=== PATIENT | male | born 1970 | race Two or more races ===

== ENCOUNTER 2023-06-23 14:22 | Outpatient (REF) | payer OTHER, SELFPAY | END 2023-06-23 14:23 | disposition home or self-care (01) | LOC: HO.HHCX 14:22 | PROVIDERS: Visit Provider Internal Medicine Geriatric Medicine | DX: Z13.89 Encounter for screening for other disorder (principal) ==

== ENCOUNTER 2024-08-01 08:48 | Outpatient (REF) | payer OTHER, SELFPAY ==
--- OUTSIDE RECORDS SUMMARY | 2024-08-01 09:17 | XMS_ITS | Encounter Summary ---
Author Organization [employer] Address [address] [facility] [address] [place] [address] Care Team Providers Care Carburetor Specialist Name Role Phone Meagan Francis VISION CARE ASSOCIATE Primary Care Provider [phone] Encounter Details Date Type Department Care Team (Late st Contact Info) Description 07/30/2024 Telephone [facility] [address] [place] [address] Meme Torres, RN Social History Tobacco Use Types Packs/Day Years Used Date Smoking Tobacco: Former Cigarettes Passive Smoke Exposure: Past Smokeless Tobacco: Never Comments:Stopped smoking 200 9 Alcohol Use Standard Drinks/Week Comments Defer 0 (1 standard drink = 0.6 oz pur e alcohol) stopped 2008 Depression Answer Date Recorded Patient Health Questionnaire-9 Score 1 07/26/2024 Patient Health Questionnaire-9 Score 1 07/26/2024 Last PHQ-9: Questionnaire Data Not on file 0 07/26/2024 Housing Stability Answer Date Recorded What is your housing situation today? I have danielle steele 07/19/[address] you li ve. Do you have problems with any of the following? None of the above 07/19/2024 Food Insecurity Answer Date Recorded Within the past 12 months, y ou worried that your food would run out before you got money to buy more: Never True 07/19/2024 Within the past 12 months,th e food you bought just didn't last and you didn't have enough money to get more: Never True 02/2025 Transportation Answer Date Recorded In the past 12 months, has l ack of transportation kept you from medical appts, meetings, work or from getting things needed for daily living? No 07/19/2024 Utilities Answer Date Recorded In the past 12 months, has t he electric, gas, oil or water company threatened to shut off services in your home? No 07/19/2024 Depression Answer Date Recorded Patient Health Questionnaire-2 Score 0 07/26/2024 Internet Access Answer Date Recorded Internet Access Q1 Yes 07/19/2024 Internet Access Q2 Not on file 07/19/2024 Sex and Gender Information Value Date Recorded Sex Assigned at Male 03/14/2023 1:36 PM EST Legal Sex Male 11:42 AM EDT Gender Identity Male 03/14/2023 1:36 PM EST Sexual Orientation Straight 03/14/2023 1: 36 PM EST documented as of this encounter Miscellaneous Notes * Telephone Encounter - Meme Torres RN - 07/30/2024 9:34 AM EDT Tc to pt to let them know per PCP Please can you schedule a nurse visit for BP check with patientin two weeks. He was given a log sheet. Thank you: . Pt expressed understanding and pt scheduled tocome in on 08/13/24. Pt denies any further questions or concerns * Telephone Encounter - Meme Torres RN - 07/30/2024 9:34 AM EDT ----- Message from Meagan Francis sent at 07/29/2024 8:35 AM EDT ----- Please can you schedule a nurse visit for BP check with patient in two weeks. He was given a log sheet. Thank you documented in this encounter Plan of Treatment Upcoming Encounters Date Type Department Care Team (Late st Contact Info) Description 08/13/2024 10:30 AM EDT Clinical Support [facility] [address] [place] [id number] documented as of this encounter Visit Diagnoses Not on filedocumented in this encounter Additional Health Concerns Assessment Noted Time PHQ-9 Depression Total Score: 1 07/27/19 10:54 AM EDT documented as of this encounter Care Teams Carburetor Specialist Relationship Specialty Start Date End Date Meagan Francis FNP [address] [place] [address] PCP - General Family Medicine 07/26/24 documented as of this encounter
--- OUTSIDE RECORDS SUMMARY | 2024-08-01 09:17 | XMS_ITS | Clinical Summary ---
Author Organization [employer] Address 75 [facility] 7t [place] [address] Care Team Providers Care Wine Steward Name Role Phone Meagan Francis ANNEALING OPERATOR Primary Care Provider [phone] Allergies Active Allergy Reactions Criticality Noted Date Comments Aspirin Hives 06/30/2023 Medications omeprazole (PriLOSEC) [address] cisnerosIndbrent ons:Gastroesoph ageal reflux disease, unspecified whether esophagitis present Take 1 capsule (40 mg) by mouth Once per day. 90 capsule 2 07/27/19 25 Active amitriptyline (Elavil) 25 MG tabletIndicatio ns:Insomnia, unspecified type Take 1 tablet (25 mg) by mouth at bedtime. 30 tablet 2 07/27/19 25 025 Active butalbital-acet aminophen-caffe ine 50-325-40 MG tabletIndicatio ns:Other migraine without status migrainosus, intractable Take 1 tablet by mouth every 8 (eight) hours if needed for migraine for up to 15 doses. 15 tablet 07/27/19 25 Active Blood Pressure kit 1 Units 2 times daily. 1 kit 07/27/19 25 Active lisinopril 5 MG tablet Take 5 mg by mouth Once per day. Active amitriptyline (Elavil) 25 MG tablet Take 25 mg by mouth at bedtime. 10/20/19 24 025 Discontinued(Re order (will not trigger notification to Pharmacy)) butalbital-acet aminophen-caffe ine 50-325-40 MG tablet Take 1 tablet by mouth every 8 (eight) hours if needed for pain. 10/20/19 24 025 Discontinued(Re order (will not trigger notification to Pharmacy)) omeprazole (PriLOSEC) 40 MG capsule Take 1 capsule by mouth Once per day. 10/20/19 24 025 Discontinued(Re order (will not trigger notification to Pharmacy)) Active Problems Problem Noted Date Diagnosed Date Exercise counseling 07/29/2024 Dietary counseling 07/29/2024 Insomnia 07/29/2024 Gastroesophageal reflux disease 07/29/2024 Intractable migraine without status migrainosus 07/29/2024 Adult wellness visit 07/29/2024 Primary hypertension 07/29/2024 Ulceration of oral mucosa 06/30/2023 Gingival recession, localized 06/30/2023 Encounters Date Type Department Care Team Description 07/30/2024 Telephone [facility] [address] [place] [address] Meme Torres RN 07/26/2024 10:30 AM EDT Office Visit [facility] [address] [place] [address] Meagan Francis FNP Adult wellness visit (Primary Dx); Primary hypertension; Other migraine without status migrainosus, intractable; Gastroesophageal reflux disease, unspecified whether esophagitis present; Insomnia, unspecified type; Dietary counseling; Exercise counseling; Snoring 07/26/2024 Travel 07/19/2024 Patient Outreach [facility] [address] [place], [place] [id number] Meagan Francis FNP Pre-visit Planning (SDOH negative, Tobacco screening negative. ) from Last 3 Months Immunizations Name Administration Dates Next Due Hep B, adult 12/16/2015,08/19/2015,07/09/2015 Influenza injectable quadriv alent preservative free 02/06/2023,02/05/2022,02/10/2020,2018 MMR 03/14/2023 Moderna Covid-19 Vaccine 12+ 09/08/2020 Tdap 03/14/2023,08/27/2012 Zoster, Recombinant 04/09/2023,01/24/2023 Family History Medical History Relation Name Comments Diabetes Father Hypertension Father Asthma Mother Relation Name Status Comments Father Mother Social History Tobacco Use Types Packs/Day Years [...] Orientation Straight 03/14/2023 1: 36 PM EST Last Filed Vital Signs Vital Sign Reading Time Taken Comments Blood Pressure 148/95 07/26/2024 10:36 AM EDT Pulse 63 07/26/2024 10:36 AM EDT Temperature 36.6 ??C (97.9 ??F) 07/26/2024 10:36 AM E DT Respiratory Rate 16 07/26/2024 10:36 AM EDT Oxygen Saturation 98% 07/26/2024 10:36 AM EDT Inhaled Oxygen Concentration - - Weight 84 kg (185 lb 2 oz) 07/26/2024 10:36 AM E DT Height 165.1 cm (5' 5 ) 07/26/2024 10:36 AM EDT Body Mass Index 30.81 07/26/2024 10:36 AM EDT Plan of Treatment Upcoming Encounters Date Type Department Care Team (Late st Contact Info) Description 08/13/2024 10:30 AM EDT Clinical Support [address] [address] Health Maintenance Due Date Last Done Comments CT Colonography 1971 Colonoscopy 1971 Colorectal Cancer Screening 1971 Dental Oral Exam 1971 Dental Prophylaxis 1971 Dental X-Ray: Bitewings 1971 FIT DNA/Cologuard 1971 FIT 1971 FOBT 1971 HIV Screening 1971 Lipid Panel 1971 Sigmoidoscopy 1971 Hepatitis C Screening 1989 Pneumococcal Vaccine: 50+ Years (1 of 1 - PCV) 2021 COVID-19 Vaccine (3 - 2023- season) 2023 09/08/2020, 08/05/2020 Influenza Vaccine (#1) 2023 , 02/05/2022, 02/10/2020, Additional history exists SDOH Screening 07/19/2025 07/19/2024 Alcohol/Substance Use Screening 07/26/2025 07/26/2024 Depression Screening 07/26/2025 07/26/2024, 07/27/19 Tobacco Screening 07/26/2025 07/26/2024 Dental X-Ray: Full Mouth 06/30/2026 06/30/2023 DTaP/Tdap/Td Vaccines (3 - Td or Tdap) 03/14/2033 03/14/2023, 08/27/2012 RSV Patients and Patients Aged 60 years or older (1 - 1-dose 75+ series) 2046 Hepatitis B Vaccines Completed 12/16/2015, 08/19/2015, 07/09/2015 Zoster Vaccines Completed 04/09/2023, 01/24/2023 HIB Vaccines Aged Out No longer eligi ble based on patient's age to complete this topic HPV Vaccines Aged Out No longer eligi ble based on patient's age to complete this topic Hepatitis A Vaccines Aged Out No long er eligible based on patient's age to complete this topic IPV Vaccines Aged Out No longer eligi ble based on patient's age to complete this topic Meningococcal Vaccine Aged Out No breana marla eligible based on patient's age to complete this topic RSV under 20 months Aged Out No longe r eligible based on patient's age to complete this topic Rotavirus Vaccines Aged Out No longer eligible based on patient's age to complete this topic Procedures Procedure Name Priority Date/Time Associated Diagnosis Comments PANORAMIC RADIOGRAPHIC IMAGE Routine 06/30/2023 1:15 PM EDT from Last 3 Months or Most Recently Relevant to Health Maintenance Insurance [facility] MEDICAID STAND ADULT Care Teams Wine Steward Relationship Specialty Start Date End Date Meagan Francis FNP [address] [place] [id number] PCP - General Family Medicine 07/26/24
[2024-08-01 11:17] LABS: MANUAL DIFF FLAG NO
[2024-08-01 11:31] LABS: Basophils Absolute Auto 0.1 X10*3/uL (0.0-0.2); Basophils Percent Auto 0.7 % (0-2); Eosinophils Absolute Auto 0.1 X10*3/uL (0.0-0.4); Eosinophils Percent Auto 0.9 % (0-4); Hematocrit 43.7 % (42.0-52.0); Hemoglobin 14.6 g/dl (14.0-18.0); Imm Gran Abs Auto 0.01 X10*3/uL (0.00-0.03); Imm Gran Pct Auto 0.1 % (0.0-0.4); Lymphocytes Percent Auto 42.4 % (20-40); Mean Corpuscular HGB Conc 33.4 g/dl (31.0-36.0); Mean Corpuscular Hemoglobin 29.3 pg (27.0-33.0); Mean Corpuscular Volume 87.8 fL (80.0-98.0); Mean Platelet Volume 10.8 fL (9.4-12.4); Monocytes Absolute Auto 0.5 X10*3/uL (0.1-1.2); Monocytes Percent Auto 7.7 % (2-11); Neutrophils Absolute Auto 3.4 x10*3/uL (2.0-8.3); Neutrophils Percent Auto 48.2 % (45-73); Platelet Count 297 X10*3/uL (160-400); Red Blood Count 4.98 X10*6/uL (4.60-5.80); Red Cell Distribution Width 13.1 % (11.0-16.0); White Blood Count 7.1 X10*3/uL (4.8-10.8)
[2024-08-01 11:39] LABS: Estimated Average Glucose 117 mg/dL; Hemoglobin A1C 151.7175 umol/L; Hemoglobin A1c % 5.7 % (<6.0); Total Hemoglobin (HGBA1C) 3867.8196 umol/L
[2024-08-01 11:45] LABS: Anion Gap 14 (12-20); Blood Urea Nitrogen 21 mg/dL (9-16); Calcium 9.4 mg/dL (8.4-10.2); Carbon Dioxide 26 mmol/L (22-29); Chloride 105 mmol/L (96-108); Cholesterol 175 mg/dL (<200); Estimated Glomerular Filt Rate > 60; Glucose Random 95 mg/dL (60-115); HDL Cholesterol 42 mg/dL (>40); LDL Cholesterol Calculated 113 mg/dL (<100); Potassium 4.6 mmol/L (3.3-5.1); Sodium 140 mmol/L (135-145); Triglycerides 101 mg/dL (<150)
[2024-08-01 12:05] LABS: HBsAGNum1 0.27 S/CO (0.00-0.99); HIV AB/AG Nonreactive (Nonreactive); HIV Num 1 0.08 S/CO (0.00-0.99); Hepatitis B Surface Antigen Negative (Negative); ~HepC Num1 0.13 S/CO (0.00-0.79); ~Hepatitis C Antibody Nonreactive (Nonreactive)
== END 2024-08-01 08:49 | disposition home or self-care (01) ==
LOC: HO.HHCL 08:48
PROVIDERS: Visit Provider Nurse Practitioner Family
DX: Z00.00 Encounter for general adult medical examination without abnormal findings (principal); Z11.4 Encounter for screening for human immunodeficiency virus [HIV]
CPT/HCPCS: 36415; 80048; 80061; 83036; 85025; 86803; 87340; 87389

== ENCOUNTER 2024-10-30 13:00 | Outpatient (AMB) | payer OTHER, SELFPAY ==
--- NOTE | 2024-10-30 13:01 | MHC.OFFVIS ---
Vital Signs 10/30/24 13:10 Height 5 ft 5 in Weight 182 lb BMI 30.3 BP 145/79 H Blood Pressure Location Rt brachial Position Sitting Pulse 75 Intake Visit Reasons: (R) inguinal Intake Note: Patient referred by pcp Meagan BOLES for evaluation and treatment of Right inguinal hernia. Present for 2yrs. Patient c/o: bulging on Rt groin. Pain that radiates to thigh. Carbon Paper Coating Supervisor Required: No Accompanied by: Self / Same As Patient Allergies No Known Allergies Allergy (Unverified 10/30/24 13:06) Medication List - Last Reconciled 10/30/24 by Jim Cavazos MD amitriptyline 25 mg PO BEDTIME ergocalciferol (vitamin D2) 1,250 mcg PO QWEEK lisinopril 5 mg PO DAILY omeprazole 40 mg PO DAILY HPI HPI (R) inguinal: Details: 54-year-old male referred for right inguinal hernia. He said he has noticed this lump on his right groin for about a year now he says that this would periodically get bigger. This has been causing increasing discomfort. He says that once in a while he would feel bubbles of air within the hernia itself. He does admit that physical exertion can cause the hernia to get bigger. He says he is healthy otherwise. He also wants and a cyst on his left chest wall removed. He said he has had this for several months and has been bothering him. [facility] Medical History (Updated 10/30/24 @ 13:34 by Jim Cavazos MD) Epidermal cyst Reducible right inguinal hernia Appendicitis HTN (hypertension) Surgical History H/O umbilical hernia repair Social History Household Members: Spouse Housing: House Alcohol intake: never Patient Tobacco Use Status: Never used Tobacco Review of Systems Const Denies chills and Denies fever(s) Card Denies chest pain, Denies dyspnea and Denies dyspnea on exertion Resp Denies cough, Denies dyspnea and Denies dyspnea on exertion GI Denies hematochezia and Denies change in bowel habits Denies hematuria and Denies difficulty urinating Musc Denies back pain and Denies limited range of motion Neuro Denies focal weakness and Denies convulsions Psych Denies depression and Denies mood swings Physical Exam Vital Signs: Last Vital Signs Pulse 75 10/30/24 13:10 BP 145/79 H 10/30/24 13:10 BMI result Body Mass Index 30.3 Const General: comfortable and no acute distress Orientation/consciousness: patient oriented x3 Neck Neck: Yes no lymphadenopathy Chest Other: Cystic induration on the left chest wall about 1 cm in diameter Resp Auscultation: clear to auscultation bilaterally Cardio Rhythm: regular rhythm GI Other: Right inguinal hernia, reducible Palpation (GI): Soft to palpation, nontender and no guarding Neuro General: patient oriented x3 Assessment & Plan Assessment & Plan (1) Reducible right inguinal hernia: Code(s): K40.90 - Unilateral inguinal hernia, without obstruction or gangrene, not specified as recurrent Category: Medical Plan: He has a reducible right inguinal hernia. He wants to proceed with the repair in view of symptoms. I explained to him the technique of repair of the right inguinal hernia with mesh. I reviewed with him the risks including but not limited to bleeding, infections, bowel injury, injury to the vas deferens, recurrence, postop pain, hematoma, as well as the benefits and alternatives. I also explained to him what to expect postoperatively. He wants to proceed. (2) Epidermal cyst: Code(s): L72.0 - Epidermal cyst Category: Medical Plan: He has this epidermal cyst in the left chest wall as described above. He wants this excised in the same time as the inguinal hernia repair. I explained the technique of excision of the cyst from the chest wall as well as the risks, benefits, and alternatives. He also understands. Coding Level of Care Code New Pt Level 3 (13866) Diagnoses Reducible right inguinal hernia K40.90 Epidermal cyst L72.0
[2024-10-30 13:10] VITALS: BP 145/79; PULSE 75; BMI 30.3
--- OUTSIDE RECORDS SUMMARY | 2024-10-30 13:27 | XMS_ITS | Encounter Summary ---
Author Organization [facility] Address [address] [place] [address] [place] [address] Phone Care Team Providers Care Retina Subspecialist Name Role Phone Herson Villarreal MD Primary Care Provider [phone] Encounter Details Date Type Department Care Team (Late st Contact Info) Description 09/02/2022 Procedure Pass [facility] Endoscopy Admitting Dept Virtual Department [address] [place] [address] Social History Tobacco Use Types Packs/Day Years Used Date Smoking Tobacco: Never Smokeless Tobacco: Never Alcohol Use Standard Drinks/Week Comments Not Currently 0 (1 standard drink = 0.6 oz pur e alcohol) Education Answer Date Recorded Are you interested in more education? Not on jeanne e 08/05/2022 Are you concerned about learning? Not on file 08/05/2022 No 08/05/2022 No 08/05/2022 Digital Access Answer Date Recorded No 08/30/2022 No 08/30/2022 Reliable internet access at home? Not on file 08/30/2022 Device with a working camera? Not on file Sex and Gender Information Value Date Recorded Sex Assigned at Male 08/07/2018 6:59 PM EDT Legal Sex Male 6:55 PM EDT Gender Identity Male 08/07/2018 6:59 PM EDT Sexual Orientation Straight 08/07/2018 6: 59 PM EDT documented as of this encounter Plan of Treatment Not on file documented as of this encounter Visit Diagnoses Not on filedocumented in this encounter Care Teams Retina Subspecialist Relationship Specialty Start Date End Date Herson Villarreal MD [address] [facility] [address] [place] [address] [email or web address] PCP - General Family Medicine 08/07/18 documented as of this encounter Additional Source Comments The information contained in this document represents components of the legal health record. It is not the complete legal health record.[facility]
--- OUTSIDE RECORDS SUMMARY | 2024-10-30 13:27 | XMS_ITS | Encounter Summary ---
Author Organization [employer] Address [address] [facility] 7t [place] [address] Care Team Providers Care Special Education Classroom Aide Name Role Phone Meagan Francis Primary Care Provider [phone] Reason for Visit * Reason Comments Med Change Request Encounter Details Date Type Department Care Team ([facility] Contact Info) Description 08/22/2024 Refill [facility] [address] [place], [place] [phone] Meagan Francis FNP [address], [place] [phone] Insomnia, unspecified type Social History Tobacco Use Types Packs/Day Years [...] PM EST documented as of this encounter Plan of Treatment Not on file documented as of this encounter Visit Diagnoses Diagnosis Insomnia, unspecified type documented in this encounter Additional Health Concerns Assessment Noted Time PHQ-9 Depression Total Score: 1 07/27/19 10:54 AM EDT documented as of this encounter Care Teams Special Education Classroom Aide Relationship Specialty Start Date End Date Meagan Francis FNP [address] [place] [address] PCP - General Family Medicine 07/26/24 documented as of this encounter
== END 2024-10-30 13:35 | disposition home or self-care (01) ==
LOC: HO.HGS 13:01
PROVIDERS: PCP Nurse Practitioner Family; Visit Provider Surgery
DX: K40.90 Unilateral inguinal hernia, without obstruction or gangrene, not specified as recurrent (principal); L72.0 Epidermal cyst
CPT/HCPCS: 99203

== ENCOUNTER → 2024-10-30 13:00 | Outpatient (BNVA) | payer OTHER, SELFPAY | PROVIDERS: PCP Nurse Practitioner Family; Visit Provider Surgery | DX: K40.90 Unilateral inguinal hernia, without obstruction or gangrene, not specified as recurrent (principal); L72.0 Epidermal cyst | CPT/HCPCS: 99202 ==

== ENCOUNTER 2024-11-15 08:26 | Day surgery (SDC) | payer OTHER, SELFPAY ==
--- OUTSIDE RECORDS SUMMARY | 2024-11-04 11:15 | XMS_ITS | Encounter Summary ---
Author Organization [facility] Address [address] [place] [address] [place] [place] [address] Phone Care Team Providers Care Parts Back Counter Man Name Role Phone Herson Villarreal MD Primary Care Provider [phone] Encounter Details Date Type Department Care Team (Late st Contact Info) Description 09/02/2022 Procedure Pass [facility] Admitting Dept Virtual Department [address] [place] [address] Social History Tobacco Use Types Packs/Day Years [...] on filedocumented in this encounter Care Teams Parts Back Counter Man Relationship Specialty Start Date End Date Herson Villarreal MD [address] [facility] [address] [place] [address] [email or web address] PCP - General Family Medicine 08/07/18 documented as of this encounter Additional Source Comments The information contained in this document represents components of the legal health record. It is not the complete legal health record.[facility]
--- OUTSIDE RECORDS SUMMARY | 2024-11-04 11:15 | XMS_ITS | Encounter Summary ---
Author Organization [employer] Address [address] [facility] [address]t [place] [address] Care Team Providers Care Street Supervisor Name Role Phone Meagan Francis Primary Care Provider [phone] Reason for Visit * Reason Comments Med Change Request Encounter Details Date Type Department Care Team ([facility] Contact Info) Description 08/22/[address] [facility] [address] [place], [place] [phone] Meagan Francis FNP [address] [place], [place] [phone] Insomnia, unspecified type Social History Tobacco Use [...] documented as of this encounter Care Teams Street Supervisor Relationship Specialty Start Date End Date Meagan Francis FNP [address] [place] [address] PCP - General Family Medicine 07/26/24 documented as of this encounter
[2024-11-12 12:13] VITALS: BMI 30.3
--- NOTE | 2024-11-13 12:57 | HO.ANESPROP2 ---
Documented by User: Eva Baldwin NP 11/13/24 12:59 HPI - Anesthesia Eval Consult details Narrative: 54yo M for Right Repair Hernia Inguinal Reducible with mesh, Left Excision of Cyst on Chest PMFSH Active Problems Active Problems: All Active Problems Epidermal cyst (Acute) Reducible right inguinal hernia (Acute) Past Medical History Medical History Epidermal cyst Reducible right inguinal hernia Appendicitis HTN (hypertension) Surgical History Surgical History H/O umbilical hernia repair Social History Social History Household Members: Spouse Housing: House Are you a primary patient centered care specialist to a significant other at home: No Do you presently have visiting nurse or other home services: No Alcohol intake: never Patient Tobacco Use Status: Never used Tobacco Use of substances other than those prescribed or required for medical reasons: No Have you been hit, kicked, punched, or otherwise hurt by someone within the past year? If so, by whom?: No Are you DNR?: No Advance Directives: No Advance Directives Information Provided: Yes Poor oral hygiene: No Meds Allergies Allergy/AdvReac Type Severity Reaction Status Date / Time aspirin Allergy Rash Verified 11/15/24 08:52 Home Medications ?Medication ?Instructions ?Recorded ?Confirmed ?Last Taken ?Type amitriptyline 25 mg tablet 25 mg PO BEDTIME 10/30/24 11/15/24 Unknown History ergocalciferol (vitamin D2) 1,250 1,250 mcg PO QWEEK 10/30/24 11/15/24 Unknown History mcg (50,000 unit) capsule lisinopril 5 mg tablet 5 mg PO DAILY 10/30/24 11/15/24 Unknown History omeprazole 40 mg capsule,delayed 40 mg PO DAILY 10/30/24 11/15/24 Unknown History release Exam Height,Weight and Vital Signs: Height 5 ft 5 in Weight 82.554 kg Pertinent Lab Results Pertinent Lab Results: Laboratory Tests 08/01/24 08:50 WBC 7.1 Hgb 14.6 Hct 43.7 Plt Count 297 Sodium 140 Potassium 4.6 Chloride 105 Carbon Dioxide 26 BUN 21 H Creatinine 0.92 Assessment and Plan Assessment Anesthesia Assessment: Chart Reviewed Documented by User: Paz Castro MD 11/15/24 10:34 PMFSH Past Medical History Medical History Epidermal cyst Reducible right inguinal hernia Appendicitis HTN (hypertension) Family History Family history of problems with anesthesia: No Surgical History Surgical History H/O umbilical hernia repair History of Problems with Anesthesia: No Social History Social History Household Members: Spouse Housing: House Are you a primary patient centered care specialist to a significant other at home: No Do you presently have visiting nurse or other home services: No Alcohol intake: never Patient Tobacco Use Status: Never used Tobacco Use of substances other than those prescribed or required for medical reasons: No Have you been hit, kicked, punched, or otherwise hurt by someone within the past year? If so, by whom?: No Are you DNR?: No Advance Directives: No Advance Directives Information Provided: Yes Poor oral hygiene: No Meds Allergies Allergy/AdvReac Type Severity Reaction Status Date / Time aspirin Allergy Rash Verified 11/15/24 08:52 Home Medications ?Medication ?Instructions ?Recorded ?Confirmed ?Last Taken ?Type amitriptyline 25 mg tablet 25 mg PO BEDTIME 10/30/24 11/15/24 Unknown History ergocalciferol (vitamin D2) 1,250 1,250 mcg PO QWEEK 10/30/24 11/15/24 Unknown History mcg (50,000 unit) capsule lisinopril 5 mg tablet 5 mg PO DAILY 10/30/24 11/15/24 Unknown History omeprazole 40 mg capsule,delayed 40 mg PO DAILY 10/30/24 11/15/24 Unknown History release Exam Airway Mallampati Class: II TM Dist: >3cm Neck ROM: Full Heart: rrr Lungs: cta Assessment and Plan Assessment Anesthesia Assessment: Anesthesia Plan Discussed Final Anesthetic Review Family History of Problems with Anesthesia: No History of Problems with Anesthesia: No NPO: Yes ASA Class: II Final Preanesthetic Review: No Changes in Pt Med Stat, Meds/Allgs Chart Reviewed, Consent Obtained/Reviewed and Anes Risks/Benef Reviewed Patient Risk: Intermediate Procedure Risk: Intermediate Anesthetic Plan Anesthetic Plan: GA Disposition: Standard PACU
[2024-11-15 08:53] VITALS: BP 142/83; PULSE 74; RESP 14; TEMP 36.7; O2SAT 98; BMI 29.3
[2024-11-15] MEDS: Lactated Ringers 1,000 ML 100 ML IVCONT (09:12)
--- NOTE | 2024-11-15 12:05 | MHC.SHP ---
Pre-Procedural Eval Section A - 24 Hr Update-Section A only Date of Service: 11/15/24 The patient is an INPATIENT: No Changes since office visit: No Cold of Flu in the past 2 weeks, No New Medical Problems, No Changes in Medication and No Patient answered all questions The patient has been examined within 24 hours of the surgical procedure. The History & Physical has been completed within 30 days and I have reviewed it.: Yes Section B - Complete if H&P > 30 days Chief Complaint: Unilateral inguinal hernia, w/o obstruction,cyst Allergies: Allergies Allergy/AdvReac Type Severity Reaction Status Date / Time aspirin Allergy Rash Verified 11/15/24 08:52 Plan I have reviewed the history and physical and performed a pertinent physical examination on my patient. No changes have occurred unless specified. Time Spent With Patient Time: Total time managing care of this patient today ____ minutes.
--- NOTE | 2024-11-15 13:45 | P.OP_ITS ---
Operative Note Operative Note Date of Service: 11/15/24 Narrative: Preop diagnosis: Right inguinal hernia, and left chest epidermal cyst Postop diagnosis: Right inguinal hernia, indirect, and left chest epidermal cyst Procedure: Repair of right inguinal hernia with mesh and excision of a left chest epidermal cyst Surgeon: Jim Cavazos MD research assistant: RYLIE Puentes The patient is a 54-year-old male with a reducible mass in the right groin consistent with a right inguinal hernia. He had a cystic induration about 1 cm of the left chest consistent with a epidermal cyst. He understood the technique of repair of the right inguinal hernia with mesh as well as the excision of the cyst on the left chest wall. He was aware of the risks, benefits, and alternatives. He was brought to the operating room. He was placed supine under general anesthesia via laryngeal mask airway. The right groin was prepped and draped in the usual sterile fashion. A surgical time-out was done. The patient received cefazolin 2 g IV preoperatively I infiltrated the planned line of incision with lidocaine 1%. I made a short incision in the skin with a blade 15 along an imaginary line from the the anterior superior iliac spine to the pubic ramus. This was carried down with electrocautery through the full-thickness of the skin and thick subcutaneous fat down to the external oblique aponeurosis. I bluntly dissected the external oblique aponeurosis to define the external ring. I made an incision on the external oblique aponeurosis with a blade 15 overlying the inguinal canal and extended this inferomedially to connect with the external ring. I applied hemostasis on the divided edges of the aponeurosis. I bluntly dissected the underside of the aponeurosis to create a pocket for the mesh . I then proceeded to bluntly dissect the spermatic cord and its contents with my index finger until was able to pass a [place] drain around this. The [place] drain was used for retraction. I identified the vas deferens and the accompanying vessels and these were protected during the dissection. By doing so was able to visualize a hernia which contained fat on the anteromedial aspect. I the hernia from the rest of the cord contents with blunt dissection and electrocautery until was able to reduce this through the internal ring. This was therefore an indirect hernia. I reinforced the internal ring with the medium-sized Prolene plug. The plug was secured with Prolene 2 sutures to the shelving edge of the inguinal meant laterally and the internal oblique superiorly medially. I reinforced the floor of the canal with a keyhole mesh. The tails of the mesh were passed around the cord at the level of the internal ring and were secured together with Prolene 2 sutures. I secured the mesh to the shelving edge of the inguinal meant laterally and the internal oblique superiorly medially as well as the pubic ramus inferomedially with Prolene 2 sutures We observed for hemostasis. Once hemostasis was confirmed, we irrigated. I reapposed the external oblique aponeurosis with a running Polysorb 2-0 stitch to re-create the external ring The thick subcutaneous layer was reapposed with Polysorb 3-0 simple interrupted sutures. Skin closure was achieved with Polysorb 4-0 subcuticular running stitch The incision was infiltrated with Marcaine 0.5% for postop analgesia. Dressings were applied. We then prepped and draped the area of the cystic induration in the left chest wall. Lidocaine 1% was used for local anesthesia. I made an elliptical incision of the skin surrounding this cystic induration with a blade 15. This was carried down through the full-thickness of the skin and subcutaneous fat to excise this entire this. This was sent as specimen. This has measured about 1 cm in diameter. The incision was closed with full-thickness nylon 3-0 simple interrupted sutures. A Band-Aid was applied. The procedure was completed. The patient tolerated the procedure well. There were no immediate complications. Initial and final counts of sponges and instruments were correct. Estimated blood loss was less than 25 cc. The patient was extubated without difficulty and transferred to the recovery room with stable vital signs.
[2024-11-15 13:55] VITALS: BP 126/72; PULSE 76; RESP 16; TEMP 36.4; O2SAT 100
[2024-11-15 14:00] VITALS: BP 125/76; PULSE 79; RESP 16; O2SAT 100
[2024-11-15 14:05] VITALS: BP 128/71; PULSE 78; RESP 16; O2SAT 98
[2024-11-15 14:10] VITALS: BP 120/84; PULSE 78; RESP 16; O2SAT 98
[2024-11-15 14:15] VITALS: BP 116/90; PULSE 73; RESP 16; O2SAT 97
== END 2024-11-15 15:37 | disposition home or self-care (01) ==
PROVIDERS: PCP Nurse Practitioner Family; Visit Provider Surgery
PROC: (CPT 49505; principal; 2024-11-15 10:30)
PROC: (CPT 49505; 2024-11-15 10:30)
DX: K40.90 Unilateral inguinal hernia, without obstruction or gangrene, not specified as recurrent (principal); L72.0 Epidermal cyst; I10 Essential (primary) hypertension; Z79.899 Other long term (current) drug therapy; Z98.890 Other specified postprocedural states
CPT/HCPCS: 49505; 11401; 88304; C1781; J0131; J0690; J1100; J2003; J2405; J2704; J2795; J3010

== ENCOUNTER → 2024-11-15 08:26 | Outpatient (BNV) | payer OTHER, SELFPAY | PROVIDERS: PCP Nurse Practitioner Family; Visit Provider Surgery | DX: K40.90 Unilateral inguinal hernia, without obstruction or gangrene, not specified as recurrent (principal); L72.0 Epidermal cyst | CPT/HCPCS: 11402; 49505 ==

== ENCOUNTER 2024-12-02 15:06 | Outpatient (AMB) | payer OTHER, SELFPAY ==
--- NOTE | 2024-12-02 15:08 | MHC.OFFVIS ---
Vital Signs 12/02/24 15:15 Weight 188 lb BP 151/78 H Blood Pressure Location Rt brachial Position Sitting Pulse 65 Intake Visit Reasons: s/p Rt inguinal hernia w/mesh; exc cyst lft chest Intake Note: Patient here s/p repair of right inguinal hernia with mesh and excision of a left chest epidermal cyst. Patient c/o: no concderns. Reports incisions healing well. No longer taking rx pain meds. Surgery: 11-15-2024 Saw Handle Assembler Required: No Accompanied by: Self / Same As Patient Allergies aspirin Allergy (Verified 12/02/24 15:12) Rash HPI HPI s/p Rt inguinal hernia w/mesh; exc cyst lft chest: Details: He underwent repair of a right inguinal hernia with mesh along with excision of a cyst from the left chest last 11/15/2024. He tolerated the procedure well. He currently denies significant complaints. [facility] Medical History Right inguinal hernia Epidermal cyst Reducible right inguinal hernia Appendicitis HTN (hypertension) Surgical History H/O umbilical hernia repair Social History Household Members: Spouse Housing: House Are you a primary health care facilities inspector to a significant other at home: No Do you presently have visiting nurse or other home services: No Alcohol intake: never Patient Tobacco Use Status: Never used Tobacco Review of Systems Const Denies chills and Denies fever(s) Resp Denies cough GI Denies abdominal pain and Denies vomiting Physical Exam Vital Signs: Last Vital Signs Pulse 65 12/02/24 15:15 BP 151/78 H 12/02/24 15:15 Const General: comfortable and no acute distress Chest Other: Excision site well healed, not infected, sutures intact GI Other: Right inguinal hernia repair site is also well healed, repair intact, no evidence of infection Assessment & Plan Assessment & Plan (1) Reducible right inguinal hernia: Code(s): K40.90 - Unilateral inguinal hernia, without obstruction or gangrene, not specified as recurrent Category: Medical Plan: Status post repair of right inguinal hernia and excision of an epidermal cyst from the chest wall. He is doing very well. Right inguinal hernia repair site is well healed in the repair is intact. The excision site on the chest wall was also well healed. His sutures on this area were removed. Coding Level of Care Code Global (38898) Diagnoses Reducible right inguinal hernia K40.90
[2024-12-02 15:15] VITALS: BP 151/78; PULSE 65
--- OUTSIDE RECORDS SUMMARY | 2024-12-02 16:47 | XMS_ITS | Encounter Summary ---
Author Organization [facility] Address [address] [place] [address] [place] [address] Phone Care Team Providers Care Premium Auditor Name Role Phone Herson Villarreal MD Primary Care Provider [phone] Encounter Details Date Type Department Care Team (Late st Contact Info) Description 09/02/2022 Procedure Pass [facility] Endoscopy Admitting Dept Virtual Department [address] [place] [address] Social History Tobacco Use Types Packs/Day Years [...] on filedocumented in this encounter Care Teams Premium Auditor Relationship Specialty Start Date End Date Herson Villarreal MD [address] [facility] [address] [place] [address] [email or web address] PCP - General Family Medicine 08/07/18 documented as of this encounter Additional Source Comments The information contained in this document represents components of the legal health record. It is not the complete legal health record.[facility]
--- OUTSIDE RECORDS SUMMARY | 2024-12-02 16:47 | XMS_ITS | Encounter Summary ---
Author Organization [facility] Address [address] [place] [address] Phone Care Team Providers Care Customer Assistant Name Role Phone Herson Villarreal MD Primary Care Provider [phone] Herson Villarreal MD Unavailable Juan York MD Unavailable Reason for Referral * MRI/CAT Scan - Closed Specialty Diagnoses / Procedures Referred By Es juarez Referred To Contact Radiology Diagnoses Lumbar radiculopathy Procedures MRI Lumbar Spine Jc Sanchez DO Phone: tel: fax: [email or web address] Referral ID Status Reason Start Date Expiration Date Visits Re quested Visits Authorized [id number] Closed 01/20/2020 02/20/2020 1 1 Encounter Details Date Type Department Care Team (Latest Contact Info) Description 02/03/2020 Ancillary Orders Virtual Department [address] [place] [address] Jc Sanchez DO [address] [place] [address] [email or web address] Social History Tobacco Use Types Packs/Day Years Used Date Smoking Tobacco: Never Smokeless Tobacco: Never Alcohol Use Standard Drinks/Week Comments Not Currently 0 (1 standard drink = 0.6 oz pur e alcohol) Sex and Gender Information Value Date Recorded Sex Assigned at Male 08/07/2018 6:59 PM EDT Legal Sex Male 6:55 PM EDT Gender Identity Male 08/07/2018 6:59 PM EDT Sexual Orientation Straight 08/07/2018 6: 59 PM EDT documented as of this encounter Plan of Treatment Not on file documented as of this encounter Results * MRI LUMBAR SPINE (NEURO) WITHOUT CONTRAST (02/06/2020 8:00 PM EDT) Anatomical Region Laterality Modality L-spine Magnetic Resonan ce 2020 7:50 AM EDT Impressions 2020 7:56 AM EDT Moderate L4-5 and mild L5-S1 disc disease, mild bilateral L4-5 neural foraminal stenosis and small L4-5 broad-based central disc extrusion. No nerve root compression, canal stenosis or significant neural foraminal stenosis. Narrative 2020 7:56 AM EDT COMPARISON: Lumbar spine x-rays 04/20/2019. TECHNIQUE: Exam performed on a 1.5 Mariama high-field MRI scanner. Sagittal T1, T2 and STIR, axial T1 and T2 sequences were obtained. MRI LUMBAR SPINE FINDINGS: Moderate L4-5 and mild L5-S1 disc space narrowing with disc desiccation. Mild degenerative endplate marrow signal changes at L4-5 and degenerative fibrofatty marrow signal changes at L5-S1. No compression fractures. No malalignment. No destructive or suspicious bone lesions. Conus terminates at T12. Paraspinal soft tissues are normal. Additional findings: No incidental findings of concern. L1-L2: Unremarkable. L2-L3: Unremarkable. L3-L4: Unremarkable. L4-L5: Small broad-based central disc extrusion. Mild facet arthropathy. Mild bilateral neural foraminal stenosis. L5-S1: Mild facet arthropathy. Procedure Note Tony Saleem MD - 2020 COMPARISON: Lumbar spine x-rays 04/20/2019. TECHNIQUE: Exam performed on a 1.5 Mariama high-field MRI scanner. SagittalT1, T2 and STIR, axial T1 and T2 sequences were obtained. MRI LUMBAR SPINE FINDINGS: Moderate L4-5 and mild L5-S1 disc space narrowing with disc desiccation.Mild degenerative endplate marrow signal changes at L4-5 and degenerativefibrofatty marrow signal changes at L5-S1. No compression fractures. Nomalalignment. No destructive or suspicious bone lesions. Conus terminatesat T12. Paraspinal soft tissues are normal. Additional findings: No incidental findings of concern. L1-L2: Unremarkable. L2-L3: Unremarkable. L3-L4: Unremarkable. L4-L5: Small broad-based central disc extrusion. Mild facet arthropathy.Mild bilateral neural foraminal stenosis. L5-S1: Mild facet arthropathy. IMPRESSION: Moderate L4-5 and mild L5-S1 disc disease, mild bilateral L4-5 neuralforaminal stenosis and small L4-5 broad-based central disc extrusion. Nonerve root compression, canal stenosis or significant neural foraminalstenosis. Jc Sanchez DO IMG MR XSPECIALTY Final Resu lt documented in this encounter Visit Diagnoses Diagnosis Lumbar radiculopathy Thoracic or lumbosacral neuritis or radiculitis, unspecified Lumbar radiculopathy Thoracic or lumbosacral neuritis or radiculitis, unspecified documented in this encounter Care Teams Customer Assistant Relationship Specialty Start Date End Date Herson Villarreal MD [address] [facility] [address] [place] [phone] [email or web address] PCP - General Family Medicine 08/07/18 Herson Villarreal MD [address] [facility] [address] [place] [phone] [email or web address] Insurance Assigned Provider 10/13/18 Juan York MD [address] [place] [id number] [email or web address] Insurance Assigned Provider 06/13/21 documented as of this encounter Additional Source Comments The information contained in this document represents components of the legal health record. It is not the complete legal health record.[facility]
--- OUTSIDE RECORDS SUMMARY | 2024-12-02 16:47 | XMS_ITS | Encounter Summary ---
Author Organization [facility] Address [address] [place] [address] Phone Care Team Providers Care Department Chair Name Role Phone Herson Villarreal MD Primary Care Provider [phone] Herson Villarreal MD Unavailable Juan York MD Unavailable Encounter Details Date Type Department Care Team (Late st Contact Info) Description 12/24/2019 Procedure Pass [facility], [address] [address] Social History Tobacco Use Types Packs/Day Years [...] on filedocumented in this encounter Care Teams Department Chair Relationship Specialty Start Date End Date Herson Villarreal MD [address] [facility] [address] [place] [phone] [email or web address] PCP - General Family Medicine 08/07/18 Herson Villarreal MD [address] [facility] [address] [place] [address] [email or web address] Insurance Assigned Provider 10/13/18 Juan York MD [address] [place] [phone] [email or web address] Insurance Assigned Provider 06/13/21 documented as of this encounter Additional Source Comments The information contained in this document represents components of the legal health record. It is not the complete legal health record.[facility]
--- OUTSIDE RECORDS SUMMARY | 2024-12-02 16:47 | XMS_ITS | Encounter Summary ---
Author Organization [employer] Address [address] [facility] [address] [place] [address] Care Team Providers Care Orderlies Teacher Name Role Phone Meagan Francis CLERK STENOGRAPHER Primary Care Provider [phone] Encounter Details Date Type Department Care Team (Late st Contact Info) Description 10/10/2024 Orders Only [facility] [address] [place] [address] Provider, MD Valeriano Social History Tobacco Use Types Packs/Day Years [...] on file documented as of this encounter Procedures Procedure Name Priority Date/Time Associated Diagnosis Comments GROSS AND MICROSCOPIC LEVEL 3 Routine 11/15/2024 1:40 PM EDT COLONOSCOPY Routine 09/02/2022 12:15 PM EDT documented in this encounter Results * Gross and Microscopic Level 3 (11/15/2024 1:40 PM EDT) 11/15/2024 1:40 PM EDT 11/15/2024 3:09 PM EDT [facility] - 11/18/2024 3:26 PM EDT ----- ------- Name: Michael Jaquez Age/Sex: 54/M : 1970 Unit#: [id number] Attend Dr: Jim Cavazos MD Re11/15/24 Status: [facility] Location: [facility] Disch: ----- ------- SPEC : [id number] RECD: 11/15/24 STATUS: AMARJIT TATE NUM: [id number] KIMBERLY: 11/15/24-[address] [facility] [address]: Jim Cavazos MD ENTERED: 11/15/24 SP TYPE: Surgical OTHR DR: Meagan Francis CLERK STENOGRAPHER ORDERED: Gross Micro L3 Diagnosis Skin, left chest cyst, excision: Benign epidermal cyst. Clinical History Cyst Microscopic Description Microscopic sections reviewed. Material Received A. Left chest cyst Gross Description Received in formalin labeled left chest cyst is a firm, oval cystic structure measuring 1.9 x 1.5 x 1.4 cm. The outer surface is white and smooth with adherent pink-white fibrous tissue and lobulated yellow adipose tissue. The specimen is covered on 1 surface by estrada- white skin measuring 1.2 x 0.8 cm. Sectioning reveals a central cavity measuring 0.9 cm in diameter that is filled with firm, chong white material. The cyst wall measures 0.1 cm in average thickness. The inner lining is smooth and unremarkable. The specimen is entirely submitted for microscopic examination, 4 pieces in cassette A. ([facility]) IHC S/NG Disclaimer NOTE: Unless otherwise stated, all tissue is formalin-fixed and paraffin-embedded. Some or all of the immunohistochemical tests reported herein may have been developed and their performance characteristics determined by [facility]. They have not been cleared or approved by the U.S. Food and Drug Administration (FDA). However, the FDA has determined that such clearance or approval is not necessary. This laboratory is certified under the Clinical Laboratory Improvement Amendments of 1988 (CLIA) as qualified to perform high complexity clinical laboratory testing. Copies To: Jim Cavazos MD [facility] General Surgeons [address] [place] [id number] CONTINUED ON NEXT PAGE ----- ------- Name: Michael Jaquez Age/Sex: 54/M : 1970 Unit#: [id number] Attend Dr: Jim Cavazos MD Re11/15/24 Status: [facility] Location: [facility] Disch: ----- ------- SPEC : [id number] RECD: 11/15/24-150 STATUS: AMARJIT TATE NUM: [id number] KIMBERLY: 11/15/24-[address]: Jim Cavazos MD ENTERED: 11/15/24-151 SP TYPE: Surgical OTHR DR: Meagan Francis ORDERED: Gross Micro L3 Copies To: (Continued) Meagan Francis [address] [address] ----- ------- Signed (signature on file) Reshma Van 11/18/24 1526 ----- ------- END OF REPORT us Generic External Data Provider LAB CYTOLOGY JOSE CONNER Final Result [facility] [address] [place] [address] [phone] * Colonoscopy (09/02/2022 12:15 PM EDT) Anatomical Region Laterality Modality Endoscopy us Historical Provider MD ENDOSCOPY PROCEDURE ORDER JOSY Final Result documented in this encounter Visit Diagnoses Not on filedocumented in this encounter Additional Health Concerns Assessment Noted Time PHQ-9 Depression Total Score: 1 07/27/19 10:54 AM EDT documented as of this encounter Care Teams Orderlies Teacher Relationship Specialty Start Date End Date Meagan Francis FNP [address] [place] [phone] PCP - General Family Medicine 07/26/24 documented as of this encounter
--- OUTSIDE RECORDS SUMMARY | 2024-12-02 16:47 | XMS_ITS | Encounter Summary ---
Author Organization [facility] Address [address] [facility] [address] [place] [address] Phone Care Team Providers Care Melt Room Operator Name Role Phone Herson Villarreal MD Primary Care Provider [phone] Herson Villarreal MD Unavailable Juan York MD Unavailable Encounter Details Date Type Department Care Team (Late st Contact Info) Description 12/01/2020 Procedure Pass [facility], Ct Scan - [facility] [address] [place] [address] Social History Tobacco Use Types Packs/Day Years [...] PM EDT documented as of this encounter Functional Status * Calculated C-SSRS Risk Score (Lifetime/Recent) Answer Date of Assessment Author No Risk Indicated 12/01/2020 8:25 PM EDT Sushil Cuellar RN * Morton Suicide Severity Rating Scale (Screener/Recent Self-Report) Question Answer Date of Assessment Author 1. Wish to be (Past 1 Month) No 021 8:25 PM EDT Sushil Cuellar RN 2. Non-Specific Active Suici karen Thoughts (Past 1 Month) No 12/01/2020 8:25 PM EDT Alan Cuellar RN 6. Suicidal Behavior (Lifetime) No 8:25 PM EDT Sushil Cuellar RN documented as of this encounter Plan of Treatment Not on file documented as of this encounter Visit Diagnoses Not on filedocumented in this encounter Care Teams Melt Room Operator Relationship Specialty Start Date End Date Herson Villarreal MD [address] [place] [phone] [email or web address] PCP - General Family Medicine 08/07/18 Herson Villarreal MD [address] [facility] [address] [place] [phone] [email or web address] Insurance Assigned Provider 10/13/18 Juan York MD [address] [place] [phone] [email or web address] Insurance Assigned Provider 06/13/21 documented as of this encounter Additional Source Comments The information contained in this document represents components of the legal health record. It is not the complete legal health record.[facility]
--- OUTSIDE RECORDS SUMMARY | 2024-12-02 16:47 | XMS_ITS | Encounter Summary ---
Author Organization [employer] Address [address] [facility] [address] [place] [address] Care Team Providers Care Sr. Payroll Manager Name Role Phone Meagan Francis Primary Care Provider [phone] Reason for Visit * Reason Comments Med Change Request Encounter Details Date Type Department Care Team ([facility] Contact Info) Description 08/22/2024 Refill [facility] [address] [place], [place] [phone] Meagan Francis FNP [address] [place], [place] [phone] Insomnia, unspecified type Social History Tobacco Use [...] documented as of this encounter Care Teams Sr. Payroll Manager Relationship Specialty Start Date End Date Meagan Francis FNP [address] [place] [address] PCP - General Family Medicine 07/26/24 documented as of this encounter
--- OUTSIDE RECORDS SUMMARY | 2024-12-02 16:47 | XMS_ITS | Clinical Summary ---
Author Organization [employer] Address [address] [place] [address] Care Team Providers Care Grocery Store Manager Name Role Phone Meagan Francis SHADOWGRAPH SCALE OPERATOR Primary Care Provider [phone] Allergies Active Allergy Reactions Criticality Noted Date Comments Aspirin Hives 06/30/2023 Medications omeprazole (PriLOSEC) [address] Levy ns:Gastroesophag eal reflux disease, unspecified whether esophagitis present Take 1 capsule (40 mg) by mouth Once per day. 90 capsule 2 5 Active amitriptyline (Elavil) 25 MG tabletIndication s:Insomnia, unspecified type Take 1 tablet (25 mg) by mouth at bedtime. 30 tablet 2 5 Active butalbital-aceta minophen-caffein e 50-325-40 MG tabletIndication s:Other migraine without status migrainosus, intractable Take 1 tablet by mouth every 8 (eight) hours if needed for migraine for up to 15 doses. 15 tablet 5 Active Blood Pressure kit 1 Units 2 times daily. 1 kit 5 Active lisinopril 10 MG tablet Take 1 tablet (10 mg) by mouth Once per day. 30 tablet 11 5 08/17/19 26 Active Active Problems Problem Noted Date Diagnosed Date Hernia, inguinal, right 09/28/2024 Left otitis media 08/16/2024 Exercise counseling 07/29/2024 Dietary counseling 07/29/2024 Insomnia 07/29/2024 Gastroesophageal reflux disease 07/29/2024 Intractable migraine without status migrainosus 07/29/2024 Adult wellness visit 07/29/2024 Primary hypertension 07/29/2024 Ulceration of oral mucosa 06/30/2023 Gingival recession, localized 06/30/2023 Encounters Date Type Department Care Team Description 10/10/2024 Orders Only [facility] [address] [place] [address] ProviderValeriano MD 10/04/2024 11:00 AM EDT Clinical Support [facility] [address] [place] [phone] Meme Torres, RN Primary hypertension [I10] 10/04/2024 Travel 09/27/2024 9:15 AM EDT Office Visit [facility] [address] [place] [phone] Meagan Francis, SHADOWGRAPH SCALE OPERATOR Hernia, inguinal, right (Primary Dx); Primary hypertension 09/27/2024 Travel 09/19/2024 Patient Outreach [facility] [address] [place], [place] [phone] Meagan Francis, SHADOWGRAPH SCALE OPERATOR Pre-visit Planning (SDOH was already completed ) 09/03/2024 10:30 AM EDT Clinical Support [facility] [address] [place] [phone] Jackie Tejeda RN Primary hypertension 09/03/2024 Travel from Last 3 Months Immunizations Immunization Administration Dates Next Due Hep B, adult 12/16/2015,08/19/2015,07/09/2015 Influenza injectable quadriv alent preservative free 02/06/2023,02/05/2022,02/10/2020,2018 Influenza, seasonal, injecta ble, preservative free 01/02/2024 MMR 03/14/2023 Moderna Covid-19 Vaccine 12+ 09/08/2020 Tdap 03/14/2023,08/27/2012 Zoster, Recombinant 04/09/2023,01/24/2023 Family History Medical History Relation Name Comments Diabetes Father Hypertension Father Asthma Mother Relation Name Status Comments Father Mother Social History Tobacco Use Types Packs/Day Years Used Date Smoking Tobacco: Former Cigarettes Passive Smoke Exposure: Past Smokeless Tobacco: Never Tobacco Cessation:Counseling Given: Not Answered Comments:Stopped smoking 2008 Alcohol Use Standard Drinks/Week Comments Defer 0 [...] Sign Reading Time Taken Comments Blood Pressure 118/78 10/04/2024 11:05 AM EDT Pulse 61 10/04/2024 11:05 AM EDT Temperature 36.8 C (98.2 F) 10/04/2024 11:05 AM EDT Respiratory Rate 16 10/04/2024 11:05 AM EDT Oxygen Saturation 96% 10/04/2024 11:05 AM EDT Inhaled Oxygen Concentration - - Weight 82.7 kg (182 lb 6.4 oz) 10/04/2024 11:05 AM EDT Height 165.1 cm (5' 5 ) 10/04/2024 11:05 AM EDT Body Mass Index 30.35 10/04/2024 11:05 AM EDT Plan of Treatment Health Maintenance Due Date Last Done Comments CT Colonography 1971 Dental Oral Exam 1971 Dental Prophylaxis 1971 Dental X-Ray: Bitewings 1971 FIT DNA/Cologuard 1971 FIT 1971 FOBT 1970 Sigmoidoscopy 1971 Pneumococcal Vaccine: 50+ Years (1 of 1 - PCV) 2021 COVID-19 Vaccine (3 - season) 2023 09/08/2020, 08/05/2020 Influenza Vaccine (#1) 2024 , 02/06/2023, 02/05/2022, Additional history exists SDOH Screening 07/19/2025 07/19/2024 Alcohol/Substance Use Screening 07/26/2025 07/26/2024 Depression Screening 07/26/2025 07/26/2024, 07/27/19 Disability Screening 07/26/2025 07/26/2024 Diabetes: Hemoglobin A1C 08/01/2025 08/01/2024 Tobacco Screening 09/27/2025 09/27/2024 Dental X-Ray: Full Mouth 06/30/2026 06/30/2023 Lipid Panel 08/01/2029 08/01/2024 Colonoscopy 09/02/2032 09/02/2022 Colorectal Cancer Screening 09/02/2032 DTaP/Tdap/Td Vaccines (3 - Td or Tdap) 03/14/2033 03/14/2023, 08/27/2012 RSV Patients and Patients Aged 60 years or older (1 - 1-dose 75+ series) 2046 Hepatitis B Vaccines Completed 12/16/2015, 08/19/2015, 07/09/2015 Zoster Vaccines Completed 04/09/2023, 01/24/2023 HIV Screening Completed 08/01/2024 Hepatitis C Screening Completed 08/01/2024 HIB Vaccines Aged Out No longer eligi [...] patient's age to complete this topic Meningococcal B Vaccine Aged Out No l onger eligible based on patient's age to complete [...] LEVEL 3 Routine 11/15/2024 1:40 PM EDT HEPATITIS C AB W/REFL TO HCV RNA, QN, PCR Routine 08/01/2024 8:50 AM EDT Adult wellness visit HIV 1/2 ANTIGEN/ANTIBODY, FOURTH GENERATION W/RFL Routine 08/01/2024 8:50 AM EDT Adult wellness visit HEMOGLOBIN A1C Routine 08/01/2024 8:50 AM EDT Adult wellness visit LIPID PANEL, STANDARD Routine 08/01/2024 8:50 AM EDT Adult wellness visit PANORAMIC RADIOGRAPHIC IMAGE Routine 06/30/2023 1:15 PM EDT COLONOSCOPY Routine 09/02/2022 12:15 PM EDT from Last 3 Months or Most Recently Relevant to Health Maintenance Results * Gross and Microscopic Level 3 (11/15/2024 1:40 PM EDT) 11/15/2024 1:40 PM EDT 11/15/2024 3:09 PM EDT [facility] - 11/18/2024 3:26 PM EDT ----- ------- Name: Michael Jaquez Age/Sex: 54/M : 1970 Unit#: [id number] Attend Dr: Jim Cavazos MD Re11/15/24 Status: [facility] Location: [facility] Disch: ----- ------- SPEC : [id number] RECD: 11/15/24-1509 STATUS: IDACristhian TATE NUM: [id number] KIMBERLY: 11/15/24-1340 [facility] DR: Jim Cavazos MD ENTERED: 11/15/24-1516 SP TYPE: Surgical OTHR DR: Meagan Francis [facility] ORDERED: Gross Micro L3 Diagnosis Skin, left [...] microscopic examination, 4 pieces in cassette A. ([facility]) IHC S/NG Disclaimer NOTE: Unless otherwise stated, all tissue is formalin-fixed and paraffin-embedded. Some or all of the immunohistochemical tests reported herein may have been developed and their performance characteristics determined by [facility]. They have not been cleared or approved by the U.S. Food and Drug Administration (FDA). However, the FDA has determined that such clearance or approval is not necessary. This laboratory is certified under the Clinical Laboratory Improvement Amendments of 1988 (CLIA) as qualified to perform high complexity clinical laboratory testing. Copies To: Jim Cavazos MD [facility] [address] [place] [address] CONTINUED ON NEXT PAGE ----- ------- Name: Michael Jaquez Age/Sex: 54/M : 1970 Unit#: [id number] Attend Dr: Jim Cavazos MD Re11/15/24 Status: [facility] Location: [facility] Disch: ----- ------- SPEC : [id number] RECD: 11/15/24 STATUS: AMARJIT PERSONShayna NUM: [id number] KIMBERLY: 11/15/24-1340 [facility] DR: Jim Cavazos MD ENTERED: 11/15/24 SP TYPE: Surgical OTHR DR: Meagan Francis ORDERED: Gross Micro L3 Copies To: (Continued) Meagan Francis [address] [phone] ----- ------- Signed (signature on file) Reshma Araujo 11/18/24 1526 ----- ------- END OF REPORT us Generic External Data Provider LAB CYTOLOGY ORDE UBALDO Final Result Performing Organization Address [facility]/ZIP Co de Phone Number [facility] [address] [place] [phone] * Hepatitis C Antibody with Reflex to HCV, RNA, Quantitative, Real-Time PCR (08/01/2024 8:50 AM EDT) Pathologist [facility] Hepatitis C Antibody Nonreactive Nonreactive [facility] Comment:Antibodies to HCV no t detected; does not exclude early acuteHCV infection. Blood Venous blood specimen / Unknown 08/01/2024 8:50 AM EDT 08/01/2024 11:13 AM EDT Meagan TERRYP LAB BLOOD ORDERABLES Final Res ult Performing Organization Address [facility]/ZIP Co de Phone Number [facility] [address] [place] [phone] * HIV-1/2 Antigen and Antibodies, Fourth Generation, with Reflexes (08/01/2024 8:50 AM EDT) Pathologist [facility] HIV AB/AG Nonreactive Nonreactive [facility] Comment:HIV-1 p24 Ag and/or HIV-1/HIV-2 Ab not detected.A test result that is nonreactive does not exclude thepossibility of exposure to or infection with HIV-1 and/orHIV-2. Nonreactive results in this assay for individualswith prior exposure to HIV-1 and/or HIV-2 may be due toantigen and antibody levels that are below the limit ofdetection of this assay.The [employer] HIV Ag/Ab Combo assay result andsupplemental assay results should be interpreted inconjunction with the patient's clinical presentation,history and other laboratory results. If the results areinconsistent with clinical evidence, additional testing issuggested to confirm the result. Blood Venous blood specimen / Unknown 08/01/2024 8:50 AM EDT 08/01/2024 11:13 AM EDT us [email or web address] [facility] LAB BLOOD ORDERABLES Final Res ult Performing Organization Address [facility] Co de Phone Number [facility] [address] [place] [phone] * Hemoglobin A1c (08/01/2024 8:50 AM EDT) Hemoglobin A1c 5.7 <6.0 % [facility] Comment:Hemoglobin A1C Refer ence Range Adults: 4.8 - 6.0 % Non diabetic: < 6.0 % Goal: < 7.0 %Additional Action Suggested: > 8.0 %Note: Hemoglobin A1c results are invalid for patients with abnormal amounts of HbF. Blood transfusions may impact the HbA1c concentration in the patient sample. Estimated Average Glucose 117 mg/dL [facility] Comment:eAG = Estimated ave rage glucose which is %A1C expressed asaverage glucose, using the formula of the V1L-ImjelhbQlqtkwi Glucose study (ADAG), Diabetes Care, Vol.31,#8,Nov. 2007 Blood Venous blood specimen / Unknown 08/01/2024 8:50 AM EDT 08/01/2024 11:13 AM EDT [employer] [facility] LAB BLOOD ORDERABLES Final Res ult Performing Organization Address [facility] Co de Phone Number [facility] [address] [place] [phone] * (ABNORMAL) Lipid Panel, Standard (08/01/2024 8:50 AM EDT) Triglycerides 101 <150 mg/dL [facility] Comment:Desirable Triglyceri de: less than 150 mg/dLBorderline High Triglyceride 150-199 mg/dLHigh Triglyceride: 200-499 mg/dLVery High Triglyceride: greater than or equal to 5OO mg/dL Cholesterol 175 <200 mg/dL [facility] Comment:Desirable Cholestero l: less than 200 mg/dLBorderline High Cholesterol: 200-239 mg/dLHigh Cholesterol: greater than 239 mg/dL LDL Cholesterol Calculated 113(H) <100 mg/dL [facility] Comment:Desirable LDL: less than 100 mg/dLNear Optimal/Above Optimal LDL: 110- 129 mg/dLBorderline High LDL: 130-159 mg/dLHigh LDL: 160-189 mg/dLVery High LDL: greater than or equal to 190 mg/dL HDL Cholesterol 42 >40 mg/dL [facility] Comment:Desirable HDL: great er than 40 mg/dL Note: This HDL assay may give artificially low results in patients with liver disease. Blood Venous blood specimen / Unknown 08/01/2024 8:50 AM EDT 08/01/2024 11:18 AM EDT us Meagan Francis SHADOWGRAPH SCALE OPERATOR LAB BLOOD ORDERABLES Final Res ult [facility] [address] [place] [phone] * Colonoscopy (09/02/2022 12:15 PM EDT) Anatomical Region Laterality Modality Endoscopy us Historical Provider ENDOSCOPY PROCEDURE ORDER JOSY Final Result from Last 3 Months or Most Recently Relevant to Health Maintenance Insurance [facility] MEDICAID STAND ADULT Care Teams Grocery Store Manager Relationship Specialty Start Date End Date Meagan Francis FNP [address] [place] [phone] PCP - General Family Medicine 07/26/24
--- OUTSIDE RECORDS SUMMARY | 2024-12-02 16:47 | XMS_ITS | Encounter Summary ---
Author Organization [facility] Address [address] [facility] [address] [place] [phone] Phone Care Team Providers Care Negative Checker Name Role Phone Herson Villarreal MD Primary Care Provider [phone] Encounter Details Date Type Department Care Team (Late st Contact Info) Description 02/23/2023 Procedure Pass [facility], Ct Scan - [address] [address] Social History Tobacco Use Types Packs/Day Years [...] with a working camera? Not on file Intimate Partner Violence Answer Date R ecorded Are you denied basic needs s uch as food, clothing, or medical care? No 02/23/2023 In the past 12 months have y ou been in a relationship with a person who hurts, threatens, or tries to control you? No 02/23/2023 Are you denied basic needs s uch as food, clothing, or medical care? No 02/23/2023 In the past 12 months have y ou been in a relationship with a person who hurts, threatens, or tries to control you? No 02/23/2023 Sex and Gender Information Value Date Recorded Sex Assigned at Male 08/07/2018 6:59 PM EDT Legal Sex Male 6:55 PM EDT Gender Identity Male 08/07/2018 6:59 PM EDT Sexual Orientation Straight 08/07/2018 6: 59 PM EDT documented as of this encounter Functional Status * Calculated C-SSRS Risk Score (Lifetime/Recent) Answer Date of Assessment Author No Risk Indicated 02/23/2023 2:12 PM Owen Kraus RN * [place] Suicide Severity Rating Scale (Screener/Recent Self-Report) Question Answer Date of Assessment Author 1. Wish to be (Past 1 Month) No 023 2:12 PM Owen Kraus RN 2. Non-Specific Active Suici karen Thoughts (Past 1 Month) No 02/23/2023 2:12 PM Saad Kraus RN 6. Suicidal Behavior (Lifetime) No 3 2:12 PM Owen Kraus RN documented as of this encounter Plan of Treatment Not on file documented as of this encounter Visit Diagnoses Not on filedocumented in this encounter Care Teams Negative Checker Relationship Specialty Start Date End Date Herson Villarreal MD [address] [facility] [address] [place] [phone] [email or web address] PCP - General Family Medicine 08/07/18 documented as of this encounter Additional Source Comments The information contained in this document represents components of the legal health record. It is not the complete legal health record.[facility]
--- OUTSIDE RECORDS SUMMARY | 2024-12-02 16:47 | XMS_ITS | Encounter Summary ---
Author Organization [facility] Address [address] [place] [phone] Phone Care Team Providers Care Stock Associate Name Role Phone Herson Villarreal MD Primary Care Provider [phone] Herson Villarreal MD Unavailable Juan York MD Unavailable Encounter Details Date Type Department Care Team (Late st Contact Info) Description 02/03/2020 Procedure Pass [facility] [address] [place] [address] Social History Tobacco Use Types Packs/Day Years [...] PM EDT documented as of this encounter Last Filed Vital Signs Vital Sign Reading Time Taken Comments Blood Pressure - - Pulse - - Temperature - - Respiratory Rate - - Oxygen Saturation - - Inhaled Oxygen Concentration - - Weight 81.6 kg (180 lb) 02/04/2020 10:57 AM EDT Height 165.1 cm (5' 5 ) 02/04/2020 10:57 AM EDT Body Mass Index 29.95 02/04/2020 10:57 AM EDT documented in this encounter Plan of Treatment Not on file documented as of this encounter Visit Diagnoses Not on filedocumented in this encounter Care Teams Stock Associate Relationship Specialty Start Date End Date Herson Villarreal MD [address] [facility] [place] [phone] [email or web address] PCP - General Family Medicine 08/07/18 Herson Villarreal MD [address] [facility] [place] [phone] [email or web address] Insurance Assigned Provider 10/13/18 Juan York MD [address] [place] [phone] [email or web address] Insurance Assigned Provider 06/13/21 documented as of this encounter Additional Source Comments The information contained in this document represents components of the legal health record. It is not the complete legal health record.[facility]
--- OUTSIDE RECORDS SUMMARY | 2024-12-02 16:47 | XMS_ITS | Encounter Summary ---
Author Organization [facility] Address [address] [place] [phone] Phone Care Team Providers Care Operations Executive Name Role Phone Herson Villarreal MD Primary Care Provider [phone] Herson Villarreal MD Unavailable Juan York MD Unavailable Reason for Referral * MRI/CAT Scan - Closed Specialty Diagnoses / Procedures Referred By Es juarez Referred To Contact Radiology Diagnoses Cervical radiculopathy Procedures MRI Cervical Spine Shreyas Goode PA Phone: tel: fax: [email or web address] Referral ID Status Reason Start Date Expiration Date Visits Re quested Visits Authorized [id number] Closed 12/24/2019 12/23/2020 1 1 Encounter Details Date Type Department Care Team (Latest Contact Info) Description 12/24/2019 Ancillary Orders Virtual Department [address] [place] [address] Shreyas Goode PA [address] [place] [address] [email or web address] Cervical radiculopathy Social History Tobacco Use Types Packs/Day [...] as of this encounter Results * MRI CERVICAL SPINE (NEURO) FOCUS WITHOUT CONTRAST (12/30/2019 11:58 AM EDT) Anatomical Region Laterality Modality C-spine Magnetic Resonan ce 12/30/2019 4:35 PM EDT Impressions 12/30/2019 4:43 PM EDT Mild degenerative changes as described above, more prominent at C5-C6 and C6-C7, which contributes to mild left neuroforaminal stenosis at those levels. Narrative 12/30/2019 4:43 PM EDT EXAM: MRI CERVICAL SPINE (NEURO) FOCUS WITHOUT CONTRAST COMPARISON: None HISTORY: Cervical radiculopathy History according to study notes from technologist: Fell at work landing on left side. Has pain from the left side of the neck radiating down the left arm and side and continuing down the left low back and leg into the left foot. Numbness and tingling in the left hand. TECHNIQUE: Exam performed on a 1.5 Mariama high-field MRI scanner. Magnetic resonance imaging of the cervical spine was performed WITHOUT injected contrast using standard department protocols. FINDINGS: Motion degrades some of the images. ALIGNMENT: Anatomic alignment is maintained. No anterior or posterior subluxations. VERTEBRAL BODIES: Vertebral body heights are maintained. Bone marrow signal pattern is within normal limits. INTERVERTEBRAL DISCS: Normal height and signal intensity. SPINAL CORD: Posterior fossa structures are unremarkable. Craniocervical junction is within normal limits. Included spinal cord has normal caliber and signal characteristics. Level by level analysis yields the following: C2-C3: No disc herniation. No significant canal or neuroforaminal stenosis. C3-C4: No disc herniation. No significant canal or neuroforaminal stenosis. C4-C5: Small disc osteophyte complex. No significant canal or neuroforaminal stenosis. C5-C6: Disc osteophyte complex eccentric to the left side contributes to mild left neuroforaminal stenosis. No significant canal or right neuroforaminal stenosis. C6-C7: Disc osteophyte complex contributes to mild left neuroforaminal stenosis. No significant canal or right neuroforaminal stenosis. C7-T1: No disc herniation. No significant canal or neuroforaminal stenosis. OTHERS: Prevertebral and posterior paraspinal soft tissues are unremarkable. Procedure Note Alix Mcknight MD - 12/30/2019 EXAM: MRI CERVICAL SPINE (NEURO) FOCUS WITHOUT CONTRAST COMPARISON: None HISTORY: Cervical radiculopathy History according to study notes from technologist: Fell at work landingon left side. Has pain from the left side of the neck radiating down theleft arm and side and continuing down the left low back and leg into theleft foot. Numbness and tingling in the left hand. TECHNIQUE: Exam performed on a 1.5 Mariama high-field MRI scanner. Magneticresonance imaging of the cervical spine was performed WITHOUT injectedcontrast using standard department protocols. FINDINGS: Motion degrades some of the images. ALIGNMENT: Anatomic alignment is maintained. No anterior or posteriorsubluxations. VERTEBRAL BODIES: Vertebral body heights are maintained. Bone marrowsignal pattern is within normal limits. INTERVERTEBRAL DISCS: Normal height and signal intensity. SPINAL CORD: Posterior fossa structures are unremarkable. Craniocervicaljunction is within normal limits. Included spinal cord has normal caliberand signal characteristics. Level by level analysis yields the following: C2-C3: No disc herniation. No significant canal or neuroforaminalstenosis. C3-C4: No disc herniation. No significant canal or neuroforaminalstenosis. C4-C5: Small disc osteophyte complex. No significant canal orneuroforaminal stenosis. C5-C6: Disc osteophyte complex eccentric to the left side contributes tomild left neuroforaminal stenosis. No significant canal or rightneuroforaminal stenosis. C6-C7: Disc osteophyte complex contributes to mild left neuroforaminalstenosis. No significant canal or right neuroforaminal stenosis. C7-T1: No disc herniation. No significant canal or neuroforaminalstenosis. OTHERS: Prevertebral and posterior paraspinal soft tissues areunremarkable. IMPRESSION: Mild degenerative changes as described above, more prominent at C5-C6 andC6-C7, which contributes to mild left neuroforaminal stenosis at thoselevels. Shreyas YOUNGBLOOD IMG MR XSPECIALTY Final Res ult documented in this encounter Visit Diagnoses Diagnosis Cervical radiculopathy Brachial neuritis or radiculitis nos Cervical radiculopathy Brachial neuritis or radiculitis nos documented in this encounter Care Teams Operations Executive Relationship Specialty Start Date End Date Herson Villarreal MD [address] [place] [phone] [email or web address] PCP - General Family Medicine 08/07/18 Herson Villarreal MD [address] [facility] [address] [place] [phone] [email or web address] Insurance Assigned Provider 10/13/18 Juan York MD [address] [place] [phone] [email or web address] Insurance Assigned Provider 06/13/21 documented as of this encounter Additional Source Comments The information contained in this document represents components of the legal health record. It is not the complete legal health record.[facility]
--- OUTSIDE RECORDS SUMMARY | 2024-12-02 16:47 | XMS_ITS | Clinical Summary ---
Author Organization [facility] Address [address] [facility] [address] [place] [address] Phone Care Team Providers Care Production Assistant Name Role Phone Herson Villarreal MD Primary Care Provider Allergies Active Allergy Reactions Criticality Noted Date Comments Aspirin 01/18/2020 Medications meclizine (ANTIVERT) 25 mg tablet Take 1 tablet (25 mg total) by mouth 3 (three) times a day as needed. 21 tablet 9 Active Additional Information Patient not taking.Reported on 09/02/2022 omeprazole (PRILOSEC) 20 mg TbEC Take 20 mg by mouth daily before breakfast. Active traZODone (DESYREL) 50 MG tablet TAKE 1 TO 2 TABLETS BY MOUTH AT BEDTIME NEEDED FOR SLEEP 2 Active sertraline (ZOLOFT) 100 MG tablet Take 200 mg by mouth every morning. 1 Active ARIPiprazole (ABILIFY) 5 MG tablet Take 5 mg by mouth daily. 1 Active naproxen (NAPROSYN) 500 MG tablet Take 1 tablet (500 mg total) by mouth 2 (two) times a day with meals for 10 days. 20 tablet 3 Active Social History Tobacco Use Types Packs/Day Years Used Date Smoking Tobacco: Never Smokeless Tobacco: Never Tobacco Cessation:Counseling Given: Not Answered Alcohol Use Standard Drinks/Week Comments Not Currently [...] Orientation Straight 08/07/2018 6: 59 PM EDT Last Filed Vital Signs Vital Sign Reading Time Taken Comments Blood Pressure 141/88 02/23/2023 5:26 PM EST Pulse 57 02/23/2023 5:26 PM EST Temperature 36.7 C (98.1 F) 02/23/2023 5:26 PM EST Respiratory Rate 15 02/23/2023 5:26 PM EST Oxygen Saturation 96% 02/23/2023 5:26 PM EST Inhaled Oxygen Concentration 2% 09/02/2022 9 :23 AM EDT Weight 81.6 kg (180 lb) 02/23/2023 11:09 AM EST Height 165.1 cm (5' 5 ) 02/23/2023 11:09 AM EST Body Mass Index 29.95 02/23/2023 11:09 AM EST Plan of Treatment Health Maintenance Due Date Last Done Comments DEPRESSION SCREENING 1983 HIV ONE-TIME SCREENING (18-6 5 YEARS) 1989 COLOGUARD 02/08/2016 FIT TEST 02/08/2016 FOBT 02/08/2016 SIGMOIDOSCOPY 02/08/2016 VIRTUAL COLONOSCOPY 02/08/2016 PNEUMOCOCCAL VACCINES (50+ years) (1 of 1 - PCV) 2021 ZOSTER VACCINES (1 of 2) 2021 Adult Td,Tdap Booster 08/27/2022 08/27/2012 COVID-19 VACCINE (3 - 2023-2 5 season) 2023 09/08/2020, 08/05/2020 SCREENING FOR DIABETES 02/23/2026 , 01/27/2023 LIPID PANEL 07/30/2028 07/31/2023, 07/31/2023, 05/07/2022 COLONOSCOPY 09/02/2032 09/02/2022 COLORECTAL CANCER SCREENING 09/02/2032 HEPATITIS C SCREENING Completed 01/27/2021 SMOKING STATUS SCREENING (On ce After 26 Yrs) Completed 02/23/2023 HEPATITIS A VACCINES Aged Out No long er eligible based on patient's age to complete this topic HIB VACCINES Aged Out No longer eligi ble based on patient's age to complete this topic MENINGOCOCCAL VACCINES (ACWY) Aged Out No longer eligible based on patient's age to complete this topic MENINGOCOCCAL VACCINES (B) Aged Out N o longer eligible based on patient's age to complete this topic Medical Devices Not on file Procedures Procedure Name Priority Date/Time Associated Diagnosis Comments ENDOSCOPY, COLON 09/02/2022 8:55 AM EDT from Last 3 Months or Most Recently Relevant to Health Maintenance Results * ENDOSCOPY, COLON (09/02/2022 8:55 AM EDT) Narrative Transcriptions Miquel Leal MD - 09/02/2022 8:55 AM EDT [facility] Patient Name: Michael Jaquez Attending MD:: MIQUEL LEAL MD, Procedure Date: 09/02/2022 8:55 AM Date of : 1970 Age: 52 Admit Type: Outpatient Gender: Male Room: [place] [address] Referring MD: Herson Villarreal MD Exam Type: Colonoscopy Indications: Screening for colorectal malignant neoplasm, Thisis the patient's first colonoscopy Medications: Monitored Anesthesia Care Procedure: Informed consent was obtained from the patientafter discussion of the indications, limitations, alternatives, benefits, and risks of the procedure. Risks specifically discussed include but are not limited to medication reactions, missed lesions, bleeding, perforation, or the need for emergent surgery. Throughout the procedure, the patient's blood pressure, pulse, end-tidal CO2, and oxygensaturations were monitored continuously. The Olympus adult variable colonoscope [id number] #4 was introduced through the anus and advanced to the terminal ileum, with identification of theappendiceal orifice and IC valve. The colonoscopy was performed without difficulty. The patient tolerated the procedure well. The quality of the bowelpreparation was excellent. Anatomical landmarks werephotographed. Complications: No immediate complications. Estimated blood loss:None. Findings: The terminal ileum appeared normal. Examination of the right colon was repeated in retroflexion and again in NBI. Retroflexion wasalso performed in the rectum. Multiple diverticula were found in the leftcolon. A 2 mm polyp was found in the hepatic flexure. The polyp was sessile. The polyp was removed with acold biopsy forceps. Resection and retrieval werecomplete. The exam was otherwise without abnormality. Impression: - The examined portion of the ileum was normal. - Diverticulosis in the sigmoid colon. - One 2 mm polyp at the hepatic flexure, removedwith a cold biopsy forceps. Resected and retrieved. - The examination was otherwise normal. Recommendation: - Patient has a contact number available for emergencies. The signs and symptoms of potential delayed complications were discussed with thepatient. Return to normal activities tomorrow. Written discharge instructions were provided to thepatient. - Await pathology results. - Repeat colonoscopy in 7 years for surveillance. Miquel Leal MIQUEL LEAL MD 09/02/2022 9:21:52 AM This report has been signed electronically. Number of Addenda: 0 Note Initiated On: 09/02/2022 8:55 AM Procedure Code(s): --- Professional --- 45188, Colonoscopy, flexible; with biopsy, single or multiple --- Technical --- 87659, Colonoscopy, flexible; with biopsy, single or multiple CPT copyright 2021 [employer]. All rights reserved. The codes documented in this report are preliminary and upon industrial services worker reviewmay be revised to meet current compliance requirements. Procedure Date: 09/02/2022 8:55:[address] [place] [address] Herson Villarreal MD GI PROCEDURE ORDERABLES Final Re sult from Last 3 Months or Most Recently Relevant to Health Maintenance Insurance [place] [id number] ACO ACO [facility]CO [facility] A[facility] A[facility] Care Teams Production Assistant Relationship Specialty Start Date End Date Herson Villarreal MD [address] [place] [address] [address] [place] Garsia [id number] [email or web address] PCP - General Family Medicine 4/30/19 Additional Source Comments The information contained in this document represents components of the legal health record. It is not the complete legal health record.[facility]
--- OUTSIDE RECORDS SUMMARY | 2024-12-02 16:47 | XMS_ITS | Encounter Summary ---
Author Organization [facility] Address [address] [employer] [facility] [address] [place] [address] Phone Care Team Providers Care Cold Press Loader Name Role Phone Herson Villarreal MD Primary Care Provider [phone] Encounter Details Date Type Department Care Team (Late st Contact Info) Description 07/22/2022 Procedure Pass [facility], Ct Scan - [address] [address] Social History Tobacco Use Types Packs/Day Years [...] Date of Assessment Author No Risk Indicated 07/22/2022 5:40 PM EDT Yovana Petersen RN * [place] Suicide Severity Rating Scale (Screener/Recent Self-Report) Question Answer Date of Assessment Author 1. Wish to be (Past 1 Month) No 023 5:40 PM EDT Yovana Petersen RN 2. Non-Specific Active Suici karen Thoughts (Past 1 Month) No 07/22/2022 5:40 PM EDT Jordan Petersen ace, RN 6. Suicidal Behavior (Lifetime) No 04/14/202 3 5:40 PM EDT Yovana Petersen RN documented as of this encounter Plan of Treatment Not on file documented as of this encounter Visit Diagnoses Not on filedocumented in this encounter Care Teams Cold Press Loader Relationship Specialty Start Date End Date Herson Villarreal MD [address] [facility] [address] [place] [address] [place] [id number] [email or web address] PCP - General Family Medicine 08/07/18 documented as of this encounter Additional Source Comments The information contained in this document represents components of the legal health record. It is not the complete legal health record.[facility]
== END 2024-12-02 15:17 | disposition home or self-care (01) ==
LOC: HO.HGS 15:06
PROVIDERS: PCP Nurse Practitioner Family; Visit Provider Surgery
DX: K40.90 Unilateral inguinal hernia, without obstruction or gangrene, not specified as recurrent (principal)
CPT/HCPCS: 99024

== ENCOUNTER → 2024-12-02 15:06 | Outpatient (BNVA) | payer OTHER, SELFPAY | PROVIDERS: PCP Nurse Practitioner Family; Visit Provider Surgery | DX: K40.90 Unilateral inguinal hernia, without obstruction or gangrene, not specified as recurrent (principal) | CPT/HCPCS: 99212 ==